=== PATIENT | male | born 1930 | race Caucasian/White ===

== ENCOUNTER → 2016-11-02 | Outpatient (CLI) | payer MEDICARE ==
[~2016-11-02] VITALS: Ht 165.1 cm; Wt 94.0 kg
[~2016-11-02] MED LIST: ACET325T51 PO; AMIO200T7 PO; APIX5TAB PO; BENZ-16 PO; BUDE0.2510 AEROSOL; CARB15DR82 BOTH EYES; CYCL30DR BOTH EYES; DOCU-168 PO; DONE5TAB19 PO; ESCI10TA47 PO; FLUT16SP NAS; FLUT1DIS31 INH; HYDR-3989 PO; IPRA3AMP AEROSOL; LEVO500T63 PO; LOPE2CAP PO; MAGN400O4 PO; METO25TA6 PO; MULT-1198 PO; OMEP20CA10 PO; PROM25SU59 RECTALLY; ZIPR20CA26 PO
== END ==
LOC: RC 13:26
PROVIDERS: ATTEND Internal Medicine Cardiovascular Disease
DX: J98.8 Other specified respiratory disorders (principal); I48.0 Paroxysmal atrial fibrillation
CPT/HCPCS: 94010; 94726

== ENCOUNTER → 2016-11-25 | Outpatient (CLI) | payer MEDICARE ==
[2016-11-25 08:01] LABS: ANION GAP 12 MEQ/L (5-15); BUN/CREATININE RATIO 15 RATIO (6-26); CALCIUM 8.4 MG/DL (8.4-10.2); CHLORIDE 109 MEQ/L (98-107); CO2 - CARBON DIOXIDE 25 MEQ/L (22-30); CREATININE 1.7 MG/DL (0.8-1.5); GLOMERULAR FILTRATION RATE 38; GLUCOSE 110 MG/DL (75-110); POTASSIUM 4.6 MEQ/L (3.6-5); SODIUM 146 MEQ/L (134-144)
== END ==
LOC: LABNH.APAL 02:25
PROVIDERS: ATTEND Family Medicine
DX: Z79.899 Other long term (current) drug therapy (principal)
CPT/HCPCS: 36415; 80048; P9604

== ENCOUNTER 2017-11-24 10:09 | Inpatient (IN) ==
--- NOTE | 2017-11-24 10:42 | Emergency Department Report ---
Fever HPI - General Chief Complaint: Fever Stated Complaint: fever,lung crackles Time Seen by Provider: 11/24/17 10:41 Source: patient Limitations: no limitations - History of Present Illness HPI Narrative: Patient is an 86-year-old male, presents emergent murmur for evaluation of cough , crackles, low-grade fevers. Patient started having these symptoms yesterday, group home today was a little bit concerned. Patient with minimal distress, states he does feel mildly short of breath for the past 3 or 4 years. They did contact primary medical physician's office who could not squeeze him in today so they recommended patient be sent to the ER for evaluation. On arrival patient no acute distress MD complaint: fever - Related Data Home Medications Medication Instructions Recorded Confirmed Fluticasone/Salmeterol 250/50 1 puff INH BID #0 01/06/12 11/24/17 [Advair 250-50 Diskus] Acetaminophen 650 mg PO BID #0 05/28/15 11/24/17 Ziprasidone HCl 20 mg PO BID #0 05/28/15 11/24/17 Acetaminophen 325 mg PO Q4H PRN 11/24/17 11/24/17 Albuterol/Ipratropium [Duoneb] 1 unit AEROSOL BID 11/24/17 11/24/17 Budesonide [Budesonide] 1 vial INH BID 11/24/17 11/24/17 Carboxymethylcellulose Sodium 1 drop OP TID 11/24/17 11/24/17 [Refresh Tears] Docusate Sodium [Dulcolax Stool 100 mg PO BID 11/24/17 11/24/17 Softener] Escitalopram [Lexapro] 10 mg PO DAILY 11/24/17 11/24/17 Eucerin Cream [Eucerin] 1 applicatio TP BID PRN 11/24/17 11/24/17 Fluticasone [Flovent Diskus 50 mcg] 1 puff INH DAILY 11/24/17 11/24/17 Furosemide [Lasix] 40 mg PO DAILY 11/24/17 11/24/17 Metoprolol Tartrate [Lopressor] 12.5 mg PO BIDWM 11/24/17 11/24/17 Multivitamin [One Daily 1 each PO DAILY 11/24/17 11/24/17 Multivitamin] Omeprazole 20 mg PO DAILY 11/24/17 11/24/17 guaiFENesin [Mucinex] 600 mg PO Q12H PRN 11/24/17 11/24/17 Previous Rx's Medication Instructions Recorded Amiodarone [Pacerone] 200 mg PO DAILY #30 tab 05/29/15 Apixaban [Eliquis] 2.5 mg PO BID #60 tab 05/29/15 Allergies Allergy/AdvReac Type Severity Reaction Status Date / Time trazodone Allergy Unknown Verified 11/24/17 10:22 aspirin AdvReac Unknown Verified 11/24/17 10:22 Review of Systems Constitutional: Reports: fever (low-grade), chills. Denies: weakness ENT: Denies: throat pain, dental pain Cardiovascular: Reports: dyspnea on exertion. Denies: chest pain, palpitations Respiratory: Reports: cough, dyspnea. Denies: wheezes Gastrointestinal: Denies: abdominal pain, nausea, vomiting Musculoskeletal: Denies: back pain Neurological: Denies: headache, weakness Psychiatric: Denies: anxiety, depression Endocrine: Denies: fatigue Hematological/Lymphatic: Denies: easy bleeding Allergic/Immunologic: Denies: facial swelling PFSH Patient Stated Medical History Alzheimer's Disease Yes Other HEENT Yes: DRY EYE SYNDROME Cardiac Arrhythmia Yes: AFIB Congestive Heart Failure Yes Hypertension Yes Chronic Obstructive Pulmonary Yes Disease (COPD) Gastroesophageal Reflux Yes Disease Osteoarthritis Yes Depression Yes - Social History Smoking status: Never smoker Substance use type: does not use Alcohol intake frequency: does not drink Physical Exam - Limitations Limitations: no limitations - General General appearance: alert, in no apparent distress - Head Head exam: normocephalic - ENT ENT exam: Present: normal oropharynx, mucous membranes dry, TM's normal bilaterally. Absent: mucous membranes moist - Neck Neck exam: Present: full ROM, trachea midline. Absent: tenderness - Chest Chest inspection: Present: symmetric chest wall rise. Absent: tenderness - Respiratory Respiratory exam: Present: normal lung sounds bilaterally, crackles (faint bibasilar crackles left greater than right). Absent: respiratory distress - Cardiovascular Cardiovascular exam: Present: regular rate, normal rhythm, normal heart sounds - Abdominal Exam Abdominal exam: Present: soft, normal bowel sounds. Absent: distention, tenderness - Extremities Exam Extremities exam: Present: full ROM - Back Exam Back exam: Present: full ROM - Skin Skin exam: Present: warm, dry - Neurological Exam Neurological exam: Present: alert, oriented X3 - Psychiatric Psychiatric exam: Present: normal affect, normal mood Course Vital Signs Temperature 99.2 F 11/24/17 10:13 Pulse Rate 78 11/24/17 10:13 Respiratory Rate 28 H 11/24/17 10:13 Blood Pressure 118/65 11/24/17 10:13 Pulse Oximetry 96 11/24/17 10:13 Temperature 99.2 F 11/24/17 10:13 Pulse Rate 78 11/24/17 10:13 Respiratory Rate 28 H 11/24/17 10:13 Blood Pressure 118/65 11/24/17 10:13 Pulse Oximetry 96 11/24/17 10:13 Fever - MDM Narrative Medical decision making narrative: Patient's port score recommends hospitalization, curb 65 recommends hospitalization. Discuss case with Dr. Ibrahim, hospitalist, she will admit inpatient. Please obtain blood cultures lactate hang cefepime. - Medical Records Attestation: I reviewed the patient's medical records. - Lab Data Attestation: I reviewed the patient's lab results. Result diagrams: 11/24/17 10:57 11/24/17 10:57 Lab Results 11/24/17 11/24/17 Range/Units 10:57 10:57 WBC 22.2 H (4.5-11.0) T/MM3 RBC 3.72 L (4.50-5.90) M/MM3 Hgb 11.8 L (13.5-17.5) GM/DL Hct 35.5 L (41-53) % MCV 95.4 (80-100) UM3 MCH 31.7 (26-34) UUG MCHC 33.2 (31-37) GM/DL RDW Std Deviation 44.5 (36.9-50.2) FL Plt Count 178 (130-400) T/MM3 MPV 9.7 (9.4-12.4) UM3 Immature Gran % (Auto) Not performed Neut % (Auto) Not performed Lymph % (Auto) Not performed [place] % (Auto) Not performed Eos % (Auto) Not performed Baso % (Auto) Not performed Neut # (Auto) Not performed Lymph # (Auto) Not performed [place] # (Auto) Not performed Eos # (Auto) Not performed Baso # (Auto) Not performed Abs Immat Gran (auto) Not performed Turbidity < 20 (0-20) Sodium 139 (134-144) MEQ/L Potassium 4.6 (3.6-5) MEQ/L Chloride 101 (98-107) MEQ/L Carbon Dioxide 26 (22-30) MEQ/L Anion Gap 12 (5-15) meq/L BUN 38.0 H (9-20) MG/DL Creatinine 2.0 H (0.8-1.5) mg/dL GFR Calculation 32 BUN/Creatinine Ratio 19 (6-26) RATIO Glucose 157 H (75-110) MG/DL Calculated Osmolality 280 (261-280) MOSM/KG Calcium 8.8 (8.4-10.2) MG/DL Icterus Index < 2 (0-7) NT-Pro-B Natriuret Pep 5150 H (0-175) pg/mL Specimen Hemolysis < 15 (0-25) - Radiology Data Attestation: I reviewed the patient's radiology results. Left lower lobe pneumonia Disposition Clinical Impression: Left lower lobe pneumonia Qualifiers: Pneumonia type: due to unspecified organism Qualified Code(s): J18.1 - Lobar pneumonia, unspecified organism Disposition: 02 To [facility] [place] Care Condition: Stable Prescriptions: No Action Ziprasidone HCl 20 mg PO BID #0 Amiodarone [Pacerone] 200 mg PO DAILY #30 tab Omeprazole 20 mg PO DAILY Carboxymethylcellulose Sodium [Refresh Tears] 1 drop OP TID Multivitamin [One Daily Multivitamin] 1 each PO DAILY Metoprolol Tartrate [Lopressor] 12.5 mg PO BIDWM Albuterol/Ipratropium [Duoneb] 1 unit AEROSOL BID Furosemide [Lasix] 40 mg PO DAILY Fluticasone [Flovent Diskus 50 mcg] 1 puff INH DAILY Docusate Sodium [Dulcolax Stool Softener] 100 mg PO BID Budesonide [Budesonide] 1 vial INH BID guaiFENesin [Mucinex] 600 mg PO Q12H PRN PRN Reason: Congestion Fluticasone/Salmeterol 250/50 [Advair 250-50 Diskus] 1 puff INH BID #0 Acetaminophen 650 mg PO BID #0 Apixaban [Eliquis] 2.5 mg PO BID #60 tab Eucerin Cream [Eucerin] 1 applicatio TP BID PRN PRN Reason: Dry Skin Acetaminophen 325 mg PO Q4H PRN PRN Reason: Pain Escitalopram [Lexapro] 10 mg PO DAILY Referrals: Bryanna Fitch DO [Primary Care Provider] - Time of Disposition: 11:22 - Seen By: physician
--- NOTE | 2017-11-24 11:17 | XRay Report ---
INDICATION: low-grade fever shortness of air bilateral basal crackles PROCEDURE: CHEST 2-VIEWS UPRIGHT (PA & LAT) Encounter: Initial COMPARISON: July 27, 2017 FINDINGS: Calcified pleural plaques are again noted. There is new airspace disease in the posterior left lower lobe. Right lung is stable and grossly clear. No pneumothorax or pleural effusion. Heart size, pulmonary vascularity and mediastinal contours are stable. Impression: Left lower lobe pneumonia or aspiration. .
[2017-11-24] MEDS ORDERED: CEFEPIME 1 GM in NS 100 ML IV ONE (11:20)
[2017-11-24] MEDS ORDERED: NS FLUSH BAG 500ml IV PRN (11:38)
--- NOTE | 2017-11-24 11:41 | History & Physical Report ---
History of Present Illness Date: 11/24/17 Chief complaint: Cough, Fever HPI: Mr Almanzar is a pleasant 86 yr old male who was brought to the ER today for acute evaluation of fever and cough. He resides at [facility] under the primary care of Dr. slaughter. Staff reported patient had cough starting yesterday, accompanied with low-grade fever of 100. Nursing staff felt that patient had some crackles, patient was brought to ER for evaluation. Further workup was performed. Patient was found to have leukocytosis with a white count of 22 and 21% bandemia. Chest x-ray did reveal left lower lobe pneumonia. Electrolytes appear to be normal, renal function is slightly elevated with BUNs of 30 and creatinine of 2.0. It appears his baseline is 1.6-1.8. Patient is found to be tachypnea, breathing 20 times per minute, he is afebrile on arrival , vital signs otherwise unremarkable. Given findings of pneumonia, accompanied with leukocytosis, bandemia, and tachypnea. The hospitalist services were contacted and accepted patient for inpatient admission for sepsis and pneumonia. Is expected that his stay will be greater than 2 overnights. Review of Systems All systems PM: 10-point ROS was reviewed, no additional remarkable complaints except - Respiratory Respiratory: Present: cough, dyspnea - Musculoskeletal Musculoskeletal: Present: muscle cramps (Right leg) Past Medical History Medical History Updates: Atrial fibrillation. Valvular heart disease. Hypertension. COPD. GERD. Glaucoma. Osteoarthritis. Chronic anticoagulation. Alzheimer's dementia Surgical History: Cholecystectomy. Bilateral hip replacement. Bilateral knee replacement. Bilateral hernia repair. Cataract extraction of right eye. Heart cath -09/03/15-Dr. Troy Family History Updates: Father: at 104 of old age, no CAD. Mother: in 60s of cancer. Son: CABGx4 at 57 Family History: As Above - Social History Smoking status: Former smoker (quit smoking 20 years ago) Substance use type: does not use Alcohol intake: never Housing: [employer] ([employer]) Current occupational status: retired Social history: Resides at [facility] PCP Dr Fitch Medications Home Medications Medication Instructions Recorded Confirmed Type Fluticasone/Salmeterol 250/50 1 puff INH BID #0 01/05/11/24/17 History [Advair 250-50 Diskus] Acetaminophen 650 mg PO BID #0 05/28/15 11/24/17 History Ziprasidone HCl 20 mg PO BID #0 05/28/15 11/24/17 History Amiodarone [Pacerone] 200 mg PO DAILY #30 tab 05/29/15 11/24/17 Rx Apixaban [Eliquis] 2.5 mg PO BID #60 tab 05/29/15 11/24/17 Rx Acetaminophen 325 mg PO Q4H PRN 11/24/17 11/24/17 History Albuterol/Ipratropium [Duoneb] 1 unit AEROSOL BID 11/24/17 11/24/17 History Budesonide [Budesonide] 1 vial INH BID 11/24/17 11/24/17 History Carboxymethylcellulose Sodium 1 drop OP TID 11/24/17 11/24/17 History [Refresh Tears] Docusate Sodium [Dulcolax Stool 100 mg PO BID 11/24/17 11/24/17 History Softener] Escitalopram [Lexapro] 10 mg PO DAILY 11/24/17 11/24/17 History Eucerin Cream [Eucerin] 1 applicatio TP BID PRN 11/24/17 11/24/17 History Fluticasone [Flovent Diskus 50 mcg] 1 puff INH DAILY 11/24/17 11/24/17 History Furosemide [Lasix] 40 mg PO DAILY 11/24/17 11/24/17 History Metoprolol Tartrate [Lopressor] 12.5 mg PO BIDWM 11/24/17 11/24/17 History Multivitamin [One Daily 1 each PO DAILY 11/24/17 11/24/17 History Multivitamin] Omeprazole 20 mg PO DAILY 11/24/17 11/24/17 History guaiFENesin [Mucinex] 600 mg PO Q12H PRN 11/24/17 11/24/17 History Allergies Allergy/AdvReac Type Severity Reaction Status Date / Time trazodone Allergy Unknown Verified 11/24/17 10:22 aspirin AdvReac Unknown Verified 11/24/17 10:22 Exam Vital Signs: Temperature 99.2 F 11/24/17 10:13 Pulse Rate 78 11/24/17 10:13 Respiratory Rate 28 H 11/24/17 10:13 Blood Pressure 118/65 11/24/17 10:13 Pulse Oximetry 96 11/24/17 10:13 - Constitutional Present: no acute distress, well nourished, well developed - Routine HEENT Exam Eye: Present: EOMI ENT: Present: mucous membranes moist, dentition normal - Routine Respiratory Exam Present: crackles - Routine Cardiovascular Exam Present: RRR, S1, S2. Absent: murmur - Routine Abdominal Exam Present: soft, normoactive bowel sounds, non distended. Absent: tenderness - Routine Extremities Exam Present: pulses intact Comments: Muscle cramps to right leg- Chronic - Routine Skin Exam Present: dry, warm - Routine Neurological Exam Present: alert, oriented X3, CN II-XII intact - Routine Psychiatric Exam Present: normal affect Results - Labs CBC & Chem 7: 11/24/17 10:57 11/24/17 10:57 Assessment and Plan (1) Sepsis Current visit: Yes Status: Acute (2) Left lower lobe pneumonia Current visit: Yes Status: Acute Assessment and Plan: Impression Sepsis- physicians of sepsis include, leukocytosis-22, bandemia-21%, left lower lobe pneumonia, tachypnea- 28 Left lower lobe pneumonia Leg cramps- Acute on chronic Atrial fibrillation Hypertension COPD Valvular heart disease GERD Osteoarthritis Glaucoma Dementia Chronic anticoagulation on Eliquis Plan Admit patient to inpatient status under the care of Dr. Ibrahim for sepsis and pneumonia. Given above stated problems he does meet criteria for sepsis. Venous lactate, blood cultures are obtained in the emergency room and pending. We will repeat venous lactate as per sepsis protocol. Patient was started on appropriate monotherapy-cefepime IV in the ER. We will continue twice a day. qSOFA score- 1/3 at time of admission- indicates low risk of mortality related to sepsis process. Will continue to monitor carefully Scheduled DuoNeb breathing treatments 4 times a day, oxygen therapy as needed for hypoxia Monitor patient on cardiac telemetry given history of atrial fibrillation. Patient is chronically on Eliquis for anticoagulation. Normal saline at 100 ML per hour for gentle hydration. Monitor for evidence of fluid overload. Given leg cramps will obtain a magnesium level on current blood in the lab. He may use tylenol as needed for pain and cramps SCDs to bilateral extremity for DVT prophylaxis Recheck CBC, BMP tomorrow morning to follow blood counts, renal function and electrolytes. Patient does verbalize his wish to be a full code, will need to verify this with [facility] paperwork known dementia Will discuss further orders and plan of care with attending, Dr. Ibrahim At time of discharge medical care will return to primary care provider, Dr Fitch DVT Prophylaxis: SCD's, Eliquis Resuscitation Status: Full Code - Time spent with patient Time with patient PN: 50 minutes - Physician Narrative Physician: Chapis Ibrahim MD Narrative: Date: 11/24/17 Time: 1700 Mr. Almanzar was interviewed and examined by me. He is currently sitting up in the recliner. I suspect he has some underlying dementia. He tells me that he was admitted because the day before yesterday he passed out. He states he was getting up to walk to his room and passed out. He was helped up and put in his room. He states he was out very long. He states that he frequently gets lightheaded going from sitting to standing but he's never passed out before. He denies feeling fevers or chills. He states he does have a cough with clear sputum production but he tells me it's no different than usual and he attributes it to sinus drainage. He denies any increasing shortness of breath and states that he is always short of breath. He denies chest pain, pressure or tightness. He denies palpitations. He denies nausea or vomiting. He does have some chronic constipation but does take medications to help with this. He complains of some blood in his stools from his hemorrhoids. He states he's had his hemorrhoids for 15 years but they been bothering him a little worse lately than usual. He states he has urinary frequency but denies any urgency or incontinence. He denies any dysuria. He denies any problems with lower extremity edema. He reports he walks with a walker because the nursing staff at the home makes him. Emergency room documentation reports the patient was brought in for evaluation of acute fever and cough. He had a low-grade temp of 100. In the ER he was found to have leukocytosis with a white blood count of 22,000, 21% bands. He has chronic kidney disease that is creatinine was a little above baseline at 2.0. It looks like his baseline runs about 1.7 to 1.8. He was tachypneic. Chest x-ray did show left lower lobe pneumonia. Lactate was initially 2.8 and repeat down to 1.4. He tells me that he had a heart catheterization which is true, in 2016, which showed [place] 40 to 50% stenosis. The other coronary vessels were small or at least unremarkable. He had an echocardiogram done in 2015 which showed a normal ejection fraction of 60%, by atrial enlargement, mild concentric left ventricular hypertrophy, trace of mitral insufficiency, trace of aortic insufficiency, [place] tricuspid insufficiency. Pulmonary artery pressure of 40 mmHg. He has a history of atrial flutter status post cardioversion in 2014. He was placed on amiodarone at that time as well as oral anticoagulation. He has had both knees replaced and the right hip replaced according to him. Records show history of cholecystectomy but he was unaware. PE: Gen: alert and oriented. NAD Skin: warm and dry HEENT: NC/AT PERRL, EOMI, Sclera, lids and conjunctiva wnl. MMM. OP clear. Neck: No JVD, Carotids 2+ without bruits Lungs: Diminished BS, Few crackles on left. No wheezes CV: regular. No murmur, rub or gallop Abd: soft. +BS. NT/ND MS: No edema. Good strength and ROM, Palp pedal pulses Neuro: No focal deficits Psy: Appropriate mood and affect Impression/Plan: 1. Sepsis-leukocytosis, bandemia-21%, left lower lobe pneumonia, tachypnea, elevated lactic acid -repeat lactic acid. -Repeat labs in am. -Cefepime IV started in ER -Bl cx drawn prior to antibiotics -IVF 2. Left lower lobe pneumonia -Cefepime -Resp therapy -Oxygen as needed 3. H/O aflutter with DCCV and amiodarone therapy -Tele -Eliquis and amiodarone 4. Leg cramps- Acute on chronic -Check mag level -tylenol prn -this is not new 5. HTN -Low normal presently, hold BBL for now 6. Minimal CAD -ASA 7. COPD -Resp therapy -Oxygen as needed -continue home Flovent, Advair, Budesonide, quaifenesin 8. Mild VHD, nothing of concern 9. GERD -Continue home PPI 10. CKD Stage 3 -Slightly over baseline -Hold lasix and repeat lab in am -IVF 11. Dementia -On Ziprasidone-continue 12. Depression -Continue Lexapro 13. Constipation -Dulcolax, miralax 14. Hemorrhoids -anusol 15. Prophylaxis -PPI and Eliquis On Lasix for some reason, will hold at this time. At time of discharge medical care will return to primary care provider, Dr Fitch Sepsis Assessment - Evaluation SIRS Criteria: RR > 20 Severe Sepsis: lactate > 2.0 mg/dL Hospital Course Summary Disclaimer: The visit summary below is not to be considered part of the above Progress Note. Hospital Course: Impression Sepsis- physicians of sepsis include, leukocytosis-22, bandemia-21%, left lower lobe pneumonia, tachypnea- 28 Left lower lobe pneumonia Leg cramps- Acute on chronic Atrial fibrillation Hypertension COPD Valvular heart disease GERD Osteoarthritis Glaucoma Dementia Chronic anticoagulation on Eliquis Plan Admit patient to inpatient status under the care of Dr. Ibrahim for sepsis and pneumonia. Given above stated problems he does meet criteria for sepsis. Venous lactate, blood cultures are obtained in the emergency room and pending. We will repeat venous lactate as per sepsis protocol. Patient was started on appropriate monotherapy-cefepime IV in the ER. We will continue twice a day. qSOFA score- 1/3 at time of admission- indicates low risk of mortality related to sepsis process. Will continue to monitor carefully Scheduled DuoNeb breathing treatments 4 times a day, oxygen therapy as needed for hypoxia Monitor patient on cardiac telemetry given history of atrial fibrillation. Patient is chronically on Eliquis for anticoagulation. Normal saline at 100 ML per hour for gentle hydration. Monitor for evidence of fluid overload. Given leg cramps will obtain a magnesium level on current blood in the lab. He may use tylenol as needed for pain and cramps SCDs to bilateral extremity for DVT prophylaxis Recheck CBC, BMP tomorrow morning to follow blood counts, renal function and electrolytes. Patient does verbalize his wish to be a full code, will need to verify this with [facility] paperwork known dementia Will discuss further orders and plan of care with attending, Dr. Ibrahim At time of discharge medical care will return to primary care provider, Dr Fitch
[2017-11-24] MEDS: SALINE FLUSH 10ml SYRINGE IVF PRN (11:46)
[2017-11-24] MEDS: NS 1,000 ML IV SCH ×2 (12:52→22:59)
[2017-11-24] MEDS: ACETAMINOPHEN 500 MG TABLET PO PRN ×2 (12:52→16:58)
[2017-11-24] MEDS ORDERED: ALBUTEROL/IPRATROPIUM 2.5mg-0.5mg/3ml NEB AEROSOL SCH (13:00)
[2017-11-24 13:10] VITALS: BMI 31.2
[2017-11-24] MEDS: ALBUTEROL/IPRATROPIUM 2.5mg-0.5mg/3ml NEB AEROSOL SCH ×2 (15:00→20:31)
[2017-11-24] MEDS ORDERED: GUAIFENESIN LA 600 MG TABLET PO PRN (17:25)
[2017-11-24] MEDS ORDERED: ACETAMINOPHEN 325 MG TABLET PO PRN (17:25)
[2017-11-24] MEDS ORDERED: EUCERIN CREAM 57gm TP PRN (17:25)
[2017-11-24] MEDS: ACETAMINOPHEN 325 MG TABLET PO SCH (20:12)
[2017-11-24] MEDS: DOCUSATE SODIUM 100 MG CAPSULE PO SCH (20:21)
[2017-11-24] MEDS: ZIPRASIDONE 20 MG CAPSULE PO SCH (20:22)
[2017-11-24] MEDS: APIXABAN 2.5 MG TABLET PO SCH (20:22)
[2017-11-24] MEDS: BUDESONIDE INH.SOLN 0.5mg/2ml NEB AEROSOL SCH (20:30)
[2017-11-24] MEDS: REFRESH CLASSIC Eye Drops 0.4ml EACH EYE SCH (20:42)
[2017-11-24] MEDS: CEFEPIME 1 GM in NS 100 ML IV SCH (23:00)
[2017-11-25] MEDS: ACETAMINOPHEN 500 MG TABLET PO PRN ×2 (04:25→18:50)
[2017-11-25] MEDS: OMEPRAZOLE 20 MG CAPSULE PO SCH (06:40)
[2017-11-25] MEDS: BUDESONIDE INH.SOLN 0.5mg/2ml NEB AEROSOL SCH ×2 (07:31→19:23)
[2017-11-25] MEDS: ALBUTEROL/IPRATROPIUM 2.5mg-0.5mg/3ml NEB AEROSOL SCH ×4 (07:31→19:23)
[2017-11-25] MEDS: NS 1,000 ML IV SCH (08:34)
[2017-11-25] MEDS: ACETAMINOPHEN 325 MG TABLET PO SCH (08:34)
[2017-11-25] MEDS: APIXABAN 2.5 MG TABLET PO SCH ×2 (08:34→21:05)
[2017-11-25] MEDS: AMIODARONE 200 MG TABLET PO SCH (08:35)
[2017-11-25] MEDS: ESCITALOPRAM 10 MG TABLET PO SCH (08:35)
[2017-11-25] MEDS: ZIPRASIDONE 20 MG CAPSULE PO SCH ×2 (08:35→21:05)
[2017-11-25] MEDS: MULTI-VITAMIN PLAIN TABLET PO SCH (08:35)
[2017-11-25] MEDS: DOCUSATE SODIUM 100 MG CAPSULE PO SCH ×2 (08:35→21:05)
[2017-11-25] MEDS: REFRESH CLASSIC Eye Drops 0.4ml EACH EYE SCH ×3 (09:14→21:05)
[2017-11-25] MEDS: CEFEPIME 1 GM in NS 100 ML IV SCH ×2 (11:17→23:40)
[2017-11-25] MEDS ORDERED: ALBUTEROL/IPRATROPIUM 2.5mg-0.5mg/3ml NEB AEROSOL PRN (12:11)
--- NOTE | 2017-11-25 13:11 | Progress Note ---
- Date 11/25/17 Subjective: Mr Almanzar is a pleasant 86 yr old male who was brought to the ER 11/24/17 for acute evaluation of fever and cough. He resides at [facility] under the primary care of Dr. Fitch. The staff reported patient had cough starting yesterday, accompanied with low-grade fever of 100. Nursing staff felt that patient had some crackles. He was brought to ER for evaluation. Further workup was performed. Patient was found to have leukocytosis with a white count of 22 and 21% bandemia. Chest x-ray did reveal left lower lobe pneumonia. Electrolytes appear to be normal, renal function is slightly elevated with BUN of 30 and creatinine of 2.0. It appears his baseline is 1.6-1.8. Patient is found to be tachypnea, breathing 20 times per minute, he is afebrile on arrival , vital signs otherwise unremarkable. Given findings of pneumonia, accompanied with leukocytosis, bandemia, and tachypnea. The hospitalist services were contacted and accepted patient for inpatient admission for sepsis and pneumonia. Is expected that his stay will be greater than 2 overnights. Mr. Almanzar has underlying dementia and a totally different story was given to me by him when I saw him yesterday. He actually reported a syncopal episode a couple days ago. He denied any problems with his breathing that was any different than usual. Today he is back in bed. Nursing reports he's been complaining of being tired. He denied any problems with fever or chills. He continues to deny any problems with shortness of breath. He is ambulating to the bathroom and back. He does admit to a cough with clear sputum production. He denies any chest pain or pressure. He denies palpitations. He reports eating well. He denied having a bowel movement the nursing reported that he did indeed have one yesterday. Objective Vital signs: Temperature 97.4 F 11/25/17 12:00 Pulse Rate 83 11/25/17 12:00 Respiratory Rate 20 11/25/17 12:00 Blood Pressure 126/50 11/25/17 12:00 Pulse Oximetry 96 11/25/17 12:00 Height/Weight/BMI: Height 1.68 m Weight 87.4 kg Body Mass Index 31.2 Comments: Gen: alert and oriented times 2, not to year/month. NAD Skin: warm and dry HEENT: NC/AT PERRL, EOMI, Sclera, lids and conjunctiva wnl. MMM. OP clear. Neck: No JVD, Carotids 2+ without bruits Lungs: Diminished BS, Few crackles on left. No wheezes CV: regular. No murmur, rub or gallop Abd: soft. +BS. NT/ND MS: No edema. Good strength and ROM, Palp pedal pulses Neuro: No focal deficits Psy: Appropriate mood and affect Results - Labs CBC & Chem 7: 11/25/17 04:28 11/25/17 04:28 Microbiology Results: Microbiology 11/24/17 11:25 Peripheral/Iv Start Blood Culture - Preliminary No Growth After 1 Day 11/24/17 11:34 Peripheral/Iv Start Blood Culture - Preliminary No Growth After 1 Day Assessment and Plan (1) Sepsis Current visit: Yes Status: Acute (2) Left lower lobe pneumonia Current visit: Yes Status: Acute Assessment and Plan: 1. Sepsis-leukocytosis, bandemia-21%, left lower lobe pneumonia, tachypnea, elevated lactic acid -white blood cells are trending down and patient has been afebrile since 8 PM last evening -Repeat labs in am. -Cefepime IV -Bl cx drawn prior to antibiotics-no growth to date 2. Left lower lobe pneumonia -Cefepime -Resp therapy -Oxygen as needed -Repeat CXR in am. 3. H/O aflutter with DCCV and amiodarone therapy -Tele-Shows SR -Eliquis and amiodarone 4. Leg cramps- Acute on chronic -Check mag level -tylenol prn -this is not new 5. HTN -Still well controlled on no medications 6. Minimal CAD -ASA 7. COPD -Resp therapy -Oxygen as needed -continue home Advair, Budesonide, guaifenesin -Provide IS and instruct 8. Mild VHD, nothing of concern 9. GERD -Continue home PPI 10. CKD Stage 3 -Slightly over baseline but better. Down to 1.8 from 2.0 yesterday -Continue to hold lasix and repeat lab in am -DC IVF -Repeat labs in am. 11. Dementia -On Ziprasidone-continue 12. Depression -Continue Lexapro 13. Constipation -Dulcolax, miralax 14. Hemorrhoids -anusol 15. Prophylaxis -PPI and Eliquis On Lasix for some reason, will continue to hold at this time. Pt with normal EF. Mild PHTN, No edema. At time of discharge medical care will return to primary care provider, Dr Fitch - Physician Narrative Narrative: Date: 11/25/17 Time: 1306 Hospital Course Summary Disclaimer: The visit summary below is not to be considered part of the above Progress Note. Hospital Course: Impression Sepsis- physicians of sepsis include, leukocytosis-22, bandemia-21%, left lower lobe pneumonia, tachypnea- 28 Left lower lobe pneumonia Leg cramps- Acute on chronic Atrial fibrillation Hypertension COPD Valvular heart disease GERD Osteoarthritis Glaucoma Dementia Chronic anticoagulation on Eliquis Plan Admit patient to inpatient status under the care of Dr. Ibrahim for sepsis and pneumonia. Given above stated problems he does meet criteria for sepsis. Venous lactate, blood cultures are obtained in the emergency room and pending. We will repeat venous lactate as per sepsis protocol. Patient was started on appropriate monotherapy-cefepime IV in the ER. We will continue twice a day. qSOFA score- 1/3 at time of admission- indicates low risk of mortality related to sepsis process. Will continue to monitor carefully Scheduled DuoNeb breathing treatments 4 times a day, oxygen therapy as needed for hypoxia Monitor patient on cardiac telemetry given history of atrial fibrillation. Patient is chronically on Eliquis for anticoagulation. Normal saline at 100 ML per hour for gentle hydration. Monitor for evidence of fluid overload. Given leg cramps will obtain a magnesium level on current blood in the lab. He may use tylenol as needed for pain and cramps SCDs to bilateral extremity for DVT prophylaxis Recheck CBC, BMP tomorrow morning to follow blood counts, renal function and electrolytes. Patient does verbalize his wish to be a full code, will need to verify this with senior living paperwork known dementia Will discuss further orders and plan of care with attending, Dr. Ibrahim At time of discharge medical care will return to primary care provider, Dr Fitch
[2017-11-25] MEDS: SALINE FLUSH 10ml SYRINGE IVF PRN (23:40)
[2017-11-26] MEDS: ACETAMINOPHEN 325 MG TABLET PO SCH ×2 (05:18→09:11)
[2017-11-26] MEDS: OMEPRAZOLE 20 MG CAPSULE PO SCH (06:19)
[2017-11-26] MEDS: ACETAMINOPHEN 500 MG TABLET PO PRN (06:32)
[2017-11-26] MEDS: BUDESONIDE INH.SOLN 0.5mg/2ml NEB AEROSOL SCH (06:45)
[2017-11-26] MEDS: ALBUTEROL/IPRATROPIUM 2.5mg-0.5mg/3ml NEB AEROSOL SCH ×2 (06:45→10:28)
[2017-11-26] MEDS: DOCUSATE SODIUM 100 MG CAPSULE PO SCH (09:11)
[2017-11-26] MEDS: REFRESH CLASSIC Eye Drops 0.4ml EACH EYE SCH (09:11)
[2017-11-26] MEDS: AMIODARONE 200 MG TABLET PO SCH (09:12)
[2017-11-26] MEDS: ESCITALOPRAM 10 MG TABLET PO SCH (09:12)
[2017-11-26] MEDS: APIXABAN 2.5 MG TABLET PO SCH (09:12)
[2017-11-26] MEDS: MULTI-VITAMIN PLAIN TABLET PO SCH (09:12)
[2017-11-26] MEDS: ZIPRASIDONE 20 MG CAPSULE PO SCH (09:16)
--- NOTE | 2017-11-26 10:08 | XRay Report ---
INDICATION: pna PROCEDURE: CHEST 2-VIEWS UPRIGHT (PA & LAT) Encounter: Initial COMPARISON: November 24, 2017 FINDINGS: Airspace consolidation in the left lower lobe is stable. Multiple calcified pleural plaques. No pneumothorax or effusion. Heart size and mediastinal contours are stable. Pulmonary vascularity is normal. Impression: Stable appearance of the left lower lobe pneumonia. .
[2017-11-26 10:31] VITALS: O2SAT 98
--- NOTE | 2017-11-26 10:39 | Extended Care Facility Orders ---
Admission Orders Admit to:: [facility] Allergies/Adverse Reactions: Allergies trazodone Allergy (Unknown, Verified 11/24/17 10:22) aspirin Adverse Reaction (Unknown, Verified 11/24/17 10:22) UPSETS STOMACH Admitting Diagnosis: sepsis,pneumonia Admitting Physician: Chapis Ibrahim MD Attending Physician: Chapis Ibrahim MD Code Status: Full Code Anticiapted Length of Stay: greater than 30 days Rehab Potential: good Rehab Prognosis: good Diet: 11/24/17 Lunch Regular Diet [DIET] Diet Modifications: May use Facility Protocol or Standing Orders: Yes May have flu vaccine: Yes - Additional Information Referrals: Bryanna Fitch DO [Primary Care Provider] - (Please schedule follow-up appointment for 1 week)
--- NOTE | 2017-11-26 10:46 | Discharge Summary ---
Discharge Information Date of admission: 11/24/17 11:20 Anticipated date of discharge: 11/26/17 Attending Physician: Chapis Ibrahim MD Primary care physician: Bryanna Fitch DO Consults: None - Discharge Diagnosis (1) Left lower lobe pneumonia Status: Acute (2) Sepsis Status: Acute Sepsis- physicians of sepsis include, leukocytosis-22, bandemia-21%, left lower lobe pneumonia, tachypnea- 28 Left lower lobe pneumonia Leg cramps- Acute on chronic Atrial fibrillation Hypertension COPD Valvular heart disease GERD Osteoarthritis Glaucoma Dementia Chronic anticoagulation on Eliquis - Procedures Procedures: None - Laboratory Labs: 11/26/17 04:48 11/26/17 04:48 - Microbiology Microbiology 11/24/17 11:25 Peripheral/Iv Start Blood Culture - Preliminary No Growth After 1 Day 11/24/17 11:34 Peripheral/Iv Start Blood Culture - Preliminary No Growth After 1 Day - Radiology Radiology: 11/24/17-chest x-ray-left lower lobe pneumonia 11/26/17-chest [id number] appearance and left lower lobe pneumonia - Pathology None History of Present Illness HPI: Mr Almanzar is a pleasant 86 yr old male who was brought to the ER today for acute evaluation of fever and cough. He resides at [facility] under the primary care of Dr. slaughter. Staff reported patient had cough starting yesterday, accompanied with low-grade fever of 100. Nursing staff felt that patient had some crackles, patient was brought to ER for evaluation. Further workup was performed. Patient was found to have leukocytosis with a white count of 22 and 21% bandemia. Chest x-ray did reveal left lower lobe pneumonia. Electrolytes appear to be normal, renal function is slightly elevated with BUNs of 30 and creatinine of 2.0. It appears his baseline is 1.6-1.8. Patient is found to be tachypnea, breathing 20 times per minute, he is afebrile on arrival , vital signs otherwise unremarkable. Given findings of pneumonia, accompanied with leukocytosis, bandemia, and tachypnea. The hospitalist services were contacted and accepted patient for inpatient admission for sepsis and pneumonia. Is expected that his stay will be greater than 2 overnights. Objective Vital signs: Temperature 97.2 F 11/26/17 07:54 Pulse Rate 77 11/26/17 07:54 Respiratory Rate 18 11/26/17 10:30 Blood Pressure 127/62 11/26/17 07:54 Pulse Oximetry 98 11/26/17 10:30 Height/Weight/BMI: Height 1.68 m Weight 86 kg Body Mass Index 31.2 - Constitutional Present: no acute distress, well nourished, well developed - Routine HEENT Exam Eye: Present: EOMI ENT: Present: mucous membranes moist, dentition normal - Routine Respiratory Exam Present: CTA bilaterally, diminished air movement (posterior bases). Absent: wheezes - Routine Cardiovascular Exam Present: RRR, S1, S2. Absent: murmur - Routine Abdominal Exam Present: soft, normoactive bowel sounds, non distended. Absent: tenderness - Routine Extremities Exam Present: normal capillary refill - Routine Skin Exam Present: intact, dry, warm - Routine Neurological Exam Present: alert, oriented X3, CN II-XII intact, moving all extremities - Routine Lymphatic Exam Lymphatic: Absent: adenopathy - Routine Psychiatric Exam Present: normal affect, normal thought process, cooperative Hospital Course This is a general summary of the patient's hospital course. For more details refer to the complete medical record. Hospital course: Impression Sepsis- physicians of sepsis include, leukocytosis-22, bandemia-21%, left lower lobe pneumonia, tachypnea- 28 Left lower lobe pneumonia Leg cramps- Acute on chronic Atrial fibrillation Hypertension COPD Valvular heart disease GERD Osteoarthritis Glaucoma Dementia Chronic anticoagulation on Eliquis 11/24/17- Admission Admit patient to inpatient status under the care of Dr. Ibrahim for sepsis and pneumonia. Given above stated problems he does meet criteria for sepsis. Venous lactate, blood cultures are obtained in the emergency room and pending. We will repeat venous lactate as per sepsis protocol. Patient was started on appropriate monotherapy-cefepime IV in the ER. We will continue twice a day. qSOFA score- 1/3 at time of admission- indicates low risk of mortality related to sepsis process. Will continue to monitor carefully Scheduled DuoNeb breathing treatments 4 times a day, oxygen therapy as needed for hypoxia Monitor patient on cardiac telemetry given history of atrial fibrillation. Patient is chronically on Eliquis for anticoagulation. Normal saline at 100 ML per hour for gentle hydration. Monitor for evidence of fluid overload. Given leg cramps will obtain a magnesium level on current blood in the lab. He may use tylenol as needed for pain and cramps SCDs to bilateral extremity for DVT prophylaxis Recheck CBC, BMP tomorrow morning to follow blood counts, renal function and electrolytes. Patient does verbalize his wish to be a full code, will need to verify this with [facility] paperwork known dementia Will discuss further orders and plan of care with attending, Dr. Ibrahim At time of discharge medical care will return to primary care provider, Dr Fitch 11/25/17 1. Sepsis-leukocytosis, bandemia-21%, left lower lobe pneumonia, tachypnea, elevated lactic acid -white blood cells are trending down and patient has been afebrile since 8 PM last evening -Repeat labs in am. -Cefepime IV -Bl cx drawn prior to antibiotics-no growth to date 2. Left lower lobe pneumonia -Cefepime -Resp therapy -Oxygen as needed -Repeat CXR in am. 3. H/O aflutter with DCCV and amiodarone therapy -Tele-Shows SR -Eliquis and amiodarone 4. Leg cramps- Acute on chronic -Check mag level -tylenol prn -this is not new 5. HTN -Still well controlled on no medications 6. Minimal CAD -ASA 7. COPD -Resp therapy -Oxygen as needed -continue home Advair, Budesonide, guaifenesin -Provide IS and instruct 8. Mild VHD, nothing of concern 9. GERD -Continue home PPI 10. CKD Stage 3 -Slightly over baseline but better. Down to 1.8 from 2.0 yesterday -Continue to hold lasix and repeat lab in am -DC IVF -Repeat labs in am. 11. Dementia -On Ziprasidone-continue 12. Depression -Continue Lexapro 13. Constipation -Dulcolax, miralax 14. Hemorrhoids -anusol 15. Prophylaxis -PPI and Eliquis On Lasix for some reason, will continue to hold at this time. Pt with normal EF. Mild PHTN, No edema. 11/26/17- Discharge Joe is seen and examined today prior to discharge. He is without complaints of pain or shortness of breath during examination. He is comfortably breathing on room air without evidence of distress. Leukocytosis has resolved. His white count is normal at 8.0 today. Renal function has also improved, creatinine 1.5. oJe pills stable and ready for discharge. He was evaluated by PT and OT recommend that he is safe to return to his previous living situation, independent living at [facility]. Plan will be to discharge him later today. He will continue on Vantin antibiotics for 5 days for treatment of pneumonia, pulmonary blood cultures remain negative. Will continue on previous home medications. Will resume Lasix and beta narda that were initially held at time of admission. He is instructed to follow-up with his primary care provider, Dr. Fitch in 1 week. Time spent with patient: greater than 35 minutes Resuscitation Status: Full Code Discharge Plan - Discharge Disposition Disposition: Discharged Home, Self-Care *Condition: Stable - Discharge Medications *Discharge Medications: New Cefpodoxime [Vantin] 200 mg PO BID 5 Days #10 tab Continue Ziprasidone HCl 20 mg PO BID #0 Amiodarone [Pacerone] 200 mg PO DAILY #30 tab Omeprazole 20 mg PO DAILY Carboxymethylcellulose Sodium [Refresh Tears] 1 drop OP TID Multivitamin [One Daily Multivitamin] 1 each PO DAILY Metoprolol Tartrate [Lopressor] 12.5 mg PO BIDWM Albuterol/Ipratropium [Duoneb] 1 unit AEROSOL BID Furosemide [Lasix] 40 mg PO DAILY Fluticasone [Flovent Diskus 50 mcg] 1 puff INH DAILY Docusate Sodium [Dulcolax Stool Softener] 100 mg PO BID Budesonide 1 vial INH BID guaiFENesin [Mucinex] 600 mg PO Q12H PRN PRN Reason: Congestion Fluticasone/Salmeterol 250/50 [Advair 250-50 Diskus] 1 puff INH BID #0 Acetaminophen 650 mg PO BID #0 Apixaban [Eliquis] 2.5 mg PO BID #60 tab Eucerin Cream [Eucerin] 1 applicatio TP BID PRN PRN Reason: Dry Skin Acetaminophen 325 mg PO Q4H PRN PRN Reason: Pain Escitalopram [Lexapro] 10 mg PO DAILY - Referrals/Follow Up *Referrals/Follow Up: Bryanna Fitch DO [Primary Care Provider] - (Please schedule follow-up appointment for 1 week) - Patient Handouts - Dismissal Complete Discharge Instructions are:: Complete Physician Narrative - Narrative Physician: Chapis Ibrahim MD Attestation Narrative: Date: 11/26/17 Time: 1150 Mr. Almanzar was interviewed and examined by me. He is sitting in his chair. He denies complaints to me. Specifically, he denies SOA, cough or sputum. He denies chest pain, palpitations. He denies N/V/D/C. He is getting up to BR on his own. He has had no fevers since admission. He would like to go home. PE: Gen: alert and oriented times 2, not to year/month. NAD Skin: warm and dry HEENT: NC/AT PERRL, EOMI, Sclera, lids and conjunctiva wnl. MMM. OP clear. Neck: No JVD, Carotids 2+ without bruits Lungs: Diminished BS, Few crackles on left. No wheezes CV: regular. No murmur, rub or gallop Abd: soft. +BS. NT/ND MS: No edema. Good strength and ROM, Palp pedal pulses Neuro: No focal deficits Psy: Appropriate mood and affect A/P: 1. Sepsis-leukocytosis, bandemia-21%, left lower lobe pneumonia, tachypnea, elevated lactic acid -white blood cells have normalized. -He has been afebrile since 8 PM 11/24/17. -Complete antibiotics with po vantin -Bl cx NGTD. 2. Left lower lobe pneumonia -Change to po antibiotic -Resp therapy 3. H/O aflutter with DCCV and amiodarone therapy -Tele-Shows SR -Eliquis and amiodarone 4. Leg cramps- Acute on chronic -tylenol prn -this is not new 5. HTN -Can restart low dose metoprolol. 6. Minimal CAD -ASA 7. COPD -Resp therapy -Oxygen as needed -continue home Advair, Budesonide, guaifenesin -Provide IS and instruct 8. Mild VHD, nothing of concern 9. GERD -Continue home PPI 10. CKD Stage 3 -Baseline now at 1.5 -May not need daily lasix as outpt 11. Dementia -On Ziprasidone-continue 12. Depression -Continue Lexapro 13. Constipation -Dulcolax, miralax 14. Hemorrhoids -anusol 15. Prophylaxis -PPI and Eliquis patient has been independently interviewed and examined by me. I have reviewed all of his labs and other notes as well as imaging. He is stable to be discharged back to the [facility]. Once arrangements are made he is free to go. I agree with [employer] assessment and plan.
[2017-11-26 11:17] VITALS: BP 141/63; PULSE 89; RESP 16; TEMP 97.3
[2017-11-26] MEDS: CEFEPIME 1 GM in NS 100 ML IV SCH (12:12)
== END 2017-11-26 13:18 | disposition home or self-care (01) | DRG 871 ==
LOC: ED 10:09 → MED 11:20
PROVIDERS: ADMIT Internal Medicine Cardiovascular Disease; ATTEND Internal Medicine Cardiovascular Disease